=== PATIENT | female | born 1975 | race Caucasian/White ===

== ENCOUNTER → 2018-01-07 07:50 | Outpatient (CLI) | payer BC, SELFPAY ==
[2018-01-07 14:05] LABS: Basophils % 0.4 % (0.1-2.0); Eosinophils # 0.2 K/mm3 (0.0-0.4); Eosinophils % 3.1 % (0.1-12.0); Hematocrit 42.5 % (37.0-47.0); Hemoglobin 14.2 g/dL (12.2-16.2); Lymphocytes # 1.6 K/mm3 (0.7-4.5); Lymphocytes % 28.9 K/mm3 (10-50); Mean Corpuscular HGB Conc 33.5 g/dL (31.8-35.4); Mean Corpuscular Hemoglobin 30.2 pg (27.0-31.2); Mean Platelet Volume 7.6 fl (7.4-10.4); Monocytes # 0.3 K/mm3 (0.1-1.0); Monocytes % 4.7 % (1.7-9.3); Neutrophils # 3.4 K/mm3 (1.8-7.8); Platelet Count 301 K/mm3 (142-424); Red Blood Count 4.72 M/mm3 (4.20-5.40); Red Cell Distribution Width 13.4 % (11.5-17.5); White Blood Count 5.4 K/mm3 (4.8-10.8)
[2018-01-07 14:30] LABS: Alanine Aminotransferase 33 U/L (12-78); Albumin Level 4.1 gm/dL (3.4-5.0); Albumin/Globulin Ratio 1.2 (1.1-1.8); Alkaline Phosphatase 107 U/L (46-116); Aspartate Amino Transferase 20 U/L (15-37); Bilirubin,Total 0.4 mg/dL (0.2-1.0); Blood Urea Nitrogen 14 mg/dL (7-18); Calcium 9.2 mg/dL (8.5-10.1); Carbon Dioxide 25 mmol/L (21.0-32.0); Chloride 103 mmol/L (98-107); Chol/HDL Ratio 3.7 (1-3.5); Cholesterol 159 mg/dL (140-200); Creatinine,Serum 0.79 mg/dL (0.55-1.02); Estimated Glomerular Filt Rate 79 ml/min (>60); GFR (African American) 96 ML/MIN (>60); Globulin 3.5 gm/dl (1.3-3.2); Glucose 102 mg/dL (74-106); HDL Cholesterol 43 mg/dL (29-89); LDL Cholesterol 97 mg/dL (0-130); Sodium 140 mmol/L (136-145); Thyroid Stimulating Hormone 0.69 uIU/ml (0.358-3.740); Total Protein,Serum 7.6 gm/dL (6.4-8.2); Triglycerides 97 mg/dL (30-200); VLDL Cholesterol 19 mg/dL (0-40)
== END ==
PROVIDERS: PCP Nurse Practitioner Family; Visit Provider Nurse Practitioner Family
DX: E78.2 Mixed hyperlipidemia (principal); E55.9 Vitamin D deficiency, unspecified; I10 Essential (primary) hypertension; E03.9 Hypothyroidism, unspecified
CPT/HCPCS: 36415; 80053; 80061; 82652; 84443; 85025

== ENCOUNTER → 2018-03-11 11:46 | Outpatient (CLI) | payer BC, SELFPAY ==
[2018-03-11 13:16] LABS: Basophils % 0.4 % (0.1-2.0); Eosinophils # 0.2 K/mm3 (0.0-0.4); Eosinophils % 3.7 % (0.1-12.0); Hematocrit 39.9 % (37.0-47.0); Hemoglobin 12.9 g/dL (12.2-16.2); Lymphocytes # 1.7 K/mm3 (0.7-4.5); Lymphocytes % 27.2 K/mm3 (10-50); Mean Corpuscular HGB Conc 32.2 g/dL (31.8-35.4); Mean Corpuscular Hemoglobin 28.8 pg (27.0-31.2); Mean Corpuscular Volume 89.4 fl (81-99); Mean Platelet Volume 6.9 fl (7.4-10.4); Monocytes # 0.3 K/mm3 (0.1-1.0); Monocytes % 5.2 % (1.7-9.3); Neutrophils % 63.4 % (37.0-80.0); Platelet Count 264 K/mm3 (142-424); Red Blood Count 4.47 M/mm3 (4.20-5.40); Red Cell Distribution Width 13.5 % (11.5-17.5); White Blood Count 6.3 K/mm3 (4.8-10.8)
[2018-03-11 13:25] LABS: Uric Acid 7.8 mg/dL (2.6-7.2)
== END ==
PROVIDERS: Visit Provider Nurse Practitioner Family
DX: M79.89 Other specified soft tissue disorders (principal); M79.675 Pain in left toe(s)
CPT/HCPCS: 36415; 84550; 85025

== ENCOUNTER → 2019-12-05 08:03 | Outpatient (CLI) | payer BC, SELFPAY ==
[2019-12-05 14:25] LABS: Basophils % 0.6 % (0.1-2.0); Eosinophils # 0.1 K/mm3 (0.0-0.4); Eosinophils % 2.7 % (0.1-12.0); Hematocrit 41.5 % (37.0-47.0); Hemoglobin 14.1 g/dL (12.2-16.2); Lymphocytes # 1.4 K/mm3 (0.7-4.5); Lymphocytes % 29.3 % (10-50); Mean Corpuscular HGB Conc 33.9 g/dL (31.8-35.4); Mean Corpuscular Hemoglobin 29.2 pg (27.0-31.2); Mean Platelet Volume 8.4 fl (7.4-10.4); Monocytes # 0.3 K/mm3 (0.1-1.0); Neutrophils # 3.1 K/mm3 (1.8-7.8); Neutrophils % 62.5 % (37.0-80.0); Platelet Count 264 K/mm3 (142-424); Red Blood Count 4.82 M/mm3 (4.20-5.40); Red Cell Distribution Width 13.7 % (11.5-17.5); White Blood Count 4.9 K/mm3 (4.8-10.8)
[2019-12-05 14:42] LABS: Alanine Aminotransferase 20 U/L (12-78); Albumin Level 4.3 g/dl (3.5-5.0); Albumin/Globulin Ratio 1.6 (1.1-1.8); Alkaline Phosphatase 108 U/L (38-126); Anion Gap 13.3 mEq/L (5-15); Aspartate Amino Transferase 24 U/L (14-36); Bilirubin,Total 0.5 mg/dl (0.2-1.3); Blood Urea Nitrogen 13 mg/dl (7-17); Calcium 9.8 mg/dl (8.4-10.2); Carbon Dioxide 25 mmol/L (22.0-30.0); Chloride 106 mmol/L (98-107); Cholesterol 165 mg/dl (140-200); Estimated Glomerular Filt Rate 78 ml/min (>60); GFR (African American) 94 ML/MIN (>60); Globulin 2.7 g/dL (1.3-3.2); Glucose 101 mg/dl (74-100); HDL Cholesterol 41 mg/dl (40-60); Potassium 4.3 mmoL/L (3.5-5.1); Sodium 140 mmol/L (136-145); Triglycerides 112 mg/dl (30-150); VLDL Cholesterol 22 mg/dL (0-40)
[2019-12-05 14:53] LABS: Direct LDL Cholesterol 104.51 mg/dL (100-129)
[2019-12-05 15:13] LABS: Thyroid Stimulating Hormone 0.53 uIU/mL (0.465-4.68)
== END ==
PROVIDERS: Visit Provider Nurse Practitioner Family
DX: E03.9 Hypothyroidism, unspecified (principal); E78.2 Mixed hyperlipidemia; I10 Essential (primary) hypertension
CPT/HCPCS: 36415; 80053; 80061; 84443; 85025

== ENCOUNTER 2020-04-28 16:01 | Emergency (ER) | payer BC, SELFPAY ==
[2020-04-28 16:27] VITALS: BP 134/74; PULSE 60; RESP 19; TEMP 36.7; O2SAT 99; BMI 33.5
--- NOTE | 2020-04-28 16:48 | HMH.EDUTC ---
[facility] [place] Disposition Clinical Impression: Sinusitis Qualifiers: Sinusitis location: unspecified location Chronicity: acute Recurrence: non-recurrent Qualified Code(s): J01.90 - Acute sinusitis, unspecified Disposition: Home, Self-Care Condition on Discharge: Good Instructions: Sinusitis, DI for Sinusitis Additional Instructions: Drink plenty of fluids. Take tylenol for pain or fever. Take the medications as directed. Follow up with your regular doctor. GO TO THE ER FOR ANY WORSENING SYMPTOMS FOLLOW THE DIRECTIONS ON THE COVID-19 HAND OUT THAT WE GAVE YOU REGARDING SELF-ISOLATION UNTIL YOU KNOW YOUR COVID-19 RESULTS Prescriptions: Benzonatate [Tessalon Perle 100mg Cap] 100 mg PO TIDP PRN #30 cap PRN Reason: Cough Transmission Status: Received by [facility] # [id number] Azithromycin [Z-Alexei 250mg Tab*] 250 mg PO UD DOSE PK #6 tab Transmission Status: Received by [facility] # [id number] Referrals: Mauro Bernabe MD [Primary Care Provider] - Forms: Work/School Release Time of Disposition: 16:50 Medical Decision Making - Medical Records Medical records reviewed: No: I reviewed the patient's medical records. - Joey Inquiry Pt receiving controlled substance: No Vital Signs: 04/28/20 16:27 04/28/20 17:10 Temperature 98.1 F 98.1 F Temperature Source Oral Oral Pulse Rate 60 Pulse Rate [Radial] 60 Respiratory Rate 19 19 Blood Pressure 134/74 Blood Pressure [Right Arm] 134/74 Blood Pressure Mean [Right Arm] 94 Blood Pressure Source Automatic Cuff Blood Pressure Source [Right Arm] Automatic Cuff Blood Pressure Position Sitting Blood Pressure Position [Right Arm] Sitting 02 Sat by Pulse Oximetry 99 Oxygen Delivery Method Nasal Cannula Room Air - Lab Data Lab results reviewed: Yes: I reviewed the patient's lab results. Lab Results 04/28/20 16:33: Strep Scn Rapid Clinic Negative Orders (Tests/Meds): ORDERS Category Date Time Status Strep Screen Confirmation Stat Micro 04/28/20 16:33 Received [facility] [place] HPI - General Stated complaint: Headache, sore throat Time Seen by Provider: 04/28/20 16:48 Mode of Arrival: Ambulatory Source of Information: Patient Limitations: No Limitations Description of Symptoms (Recalled from Triage Doc. by RN): sore throat, possible sinus infection HEENT Symptoms (Recalled from RN notes): Yes Resp Symptoms (Recalled from RN notes): No Skin Symptoms (Recalled from RN notes): No MS Symptoms (Recalled from RN notes): No Functional Status (Recalled from RN notes): wnl - History of Present Illness Provider Complaint: She c/o sinus congestion and feeling bad for the past 3 days. She works at the [employer]. She denies any known COVID exposure, but she states that she has been around a lot of sick people. - Related Data Home Medications Medication Instructions Recorded Confirmed cetirizine 10 mg tablet 10 mg PO DAILY 09/07/18 09/07/18 gemfibrozil 600 mg tablet 600 mg PO BID 09/07/18 09/07/18 levothyroxine 75 mcg capsule 75 mcg PO DAILY 09/07/18 09/07/18 lisinopril 10 mg tablet 10 mg PO DAILY 09/07/18 09/07/18 Previous Rx's Medication Instructions Recorded azithromycin 250 mg tablet 250 mg PO QDAY 5 Days #6 tab 09/07/18 Azithromycin [Z-Alexei 250mg Tab*] 250 mg PO UD DOSE PK #6 tab 04/28/20 Benzonatate [Tessalon Perle 100mg 100 mg PO TIDP PRN #30 cap 04/28/20 Cap] Allergies Allergy/AdvReac Type Severity Reaction Status Date / Time Penicillins Allergy Verified 09/07/18 11:07 - Worker's Comp Is this a Worker's Comp case?: No [facility] History - Hepatitis A Screen Drug use history?: No High risk sexual behaviors?: No History of sexually transmitted infection?: No Currently employed?: No Childcare worker?: No Do you have indoor plumbing?: Yes Do you have electricity?: Yes Attestation statement:: This patient has been screened for Hepatitis A risk factors. I have reviewed the patient's past medical history: Yes [facility]
[2020-04-28 17:10] VITALS: BP 134/74; PULSE 60; RESP 19; TEMP 36.7; O2SAT 99
--- NOTE | 2020-04-28 19:58 | PC.NURSE ---
COVID TEST POSTIVE RESULT GIVEN PER TOMI SANTIAGO RN.
--- NOTE | 2020-04-28 20:07 | PC.NURSE ---
PROVIDER AWARE OF TEST RESULTS.
[2020-04-28 20:16] LABS: UTC Strep Screen (Rapid) Negative (Negative)
== END 2020-04-28 17:11 | disposition home or self-care (01) ==
PROVIDERS: Emergency Provider Nurse Practitioner Family; PCP Internal Medicine Adolescent Medicine
DX: J01.90 Acute sinusitis, unspecified (principal); Z20.828 Contact with and (suspected) exposure to other viral communicable diseases; E78.5 Hyperlipidemia, unspecified; I10 Essential (primary) hypertension; Z88.0 Allergy status to penicillin; Z79.899 Other long term (current) drug therapy
CPT/HCPCS: 87880; 99202; U0003

== ENCOUNTER → 2021-02-26 16:03 | Outpatient (CLI) | payer BC, SELFPAY ==
[2021-02-26 16:41] LABS: Basophils % 0.5 % (0.1-2.0); Eosinophils # 0.1 K/mm3 (0.0-0.4); Eosinophils % 1.8 % (0.1-12.0); Hematocrit 40.2 % (37.0-47.0); Hemoglobin 13.8 g/dL (12.2-16.2); Lymphocytes # 1.7 K/mm3 (0.7-4.5); Lymphocytes % 29.1 % (10-50); Mean Corpuscular HGB Conc 34.2 g/dL (31.8-35.4); Mean Corpuscular Hemoglobin 29.6 pg (27.0-31.2); Mean Corpuscular Volume 86.4 fl (81-99); Mean Platelet Volume 8.1 fl (7.4-10.4); Monocytes # 0.3 K/mm3 (0.1-1.0); Monocytes % 5.2 % (1.7-9.3); Neutrophils # 3.7 K/mm3 (1.8-7.8); Neutrophils % 63.3 % (37.0-80.0); Platelet Count 265 K/mm3 (142-424); Red Blood Count 4.65 M/mm3 (4.20-5.40); Red Cell Distribution Width 13.6 % (11.5-17.5); White Blood Count 5.8 K/mm3 (4.8-10.8)
[2021-02-26 17:00] LABS: Alanine Aminotransferase 30 U/L (12-78); Albumin Level 4.2 g/dl (3.5-5.0); Albumin/Globulin Ratio 1.6 (1.1-1.8); Alkaline Phosphatase 92 U/L (38-126); Anion Gap 10.5 mEq/L (5-15); Aspartate Amino Transferase 32 U/L (14-36); Bilirubin,Total 0.5 mg/dl (0.2-1.3); Blood Urea Nitrogen 15 mg/dl (7-17); Calcium 8.9 mg/dl (8.4-10.2); Carbon Dioxide 28 mmol/L (22.0-30.0); Chloride 107 mmol/L (98-107); Chol/HDL Ratio 4.3 (1-3.5); Cholesterol 184 mg/dl (140-200); Estimated Glomerular Filt Rate 90 ml/min (>60); GFR (African American) 109 ML/MIN (>60); Globulin 2.6 g/dL (1.3-3.2); Glucose 90 mg/dl (74-100); HDL Cholesterol 43 mg/dl (40-60); Potassium 4.5 mmoL/L (3.5-5.1); Sodium 141 mmol/L (136-145); Total Protein,Serum 6.8 g/dl (6.3-8.2); Triglycerides 116 mg/dl (30-150); Uric Acid 7.1 mg/dl (2.5-6.2); VLDL Cholesterol 23 mg/dL (0-40)
[2021-02-26 17:12] LABS: Direct LDL Cholesterol 118.48 mg/dL (100-129)
[2021-02-26 20:41] LABS: Hemoglobin A1C 5.5 % (4.0-6.0)
== END ==
PROVIDERS: Visit Provider Nurse Practitioner Family
DX: I10 Essential (primary) hypertension (principal); E78.2 Mixed hyperlipidemia; E03.9 Hypothyroidism, unspecified; E55.9 Vitamin D deficiency, unspecified; M1A.9XX0 Chronic gout, unspecified, without tophus (tophi); Z83.3 Family history of diabetes mellitus
CPT/HCPCS: 80053; 80061; 82306; 83036; 84443; 84550; 85025

== ENCOUNTER 2021-10-22 12:31 | Emergency (ER) | payer BC, SELFPAY ==
[2021-10-22 12:55] VITALS: BP 148/89; PULSE 75; RESP 16; TEMP 36.6; O2SAT 97; BMI 37.8
--- NOTE | 2021-10-22 13:21 | HMH.EDUTC ---
[facility] [place] Disposition Clinical Impression: Sinusitis Qualifiers: Sinusitis location: unspecified location Chronicity: acute Recurrence: non-recurrent Qualified Code(s): J01.90 - Acute sinusitis, unspecified Otitis media Qualifiers: Otitis media type: suppurative Chronicity: acute Laterality: bilateral Recurrence: non-recurrent Spontaneous tympanic membrane rupture: without spontaneous rupture Qualified Code(s): H66.003 - Acute suppurative otitis media without spontaneous rupture of ear drum, bilateral Disposition: Home, Self-Care Condition on Discharge: Good Instructions: Middle Ear Infection, DI for Sinusitis, Benign Paroxysmal Positional Vertigo, Meclizine Additional Instructions: Drink plenty of fluids. Take tylenol or ibuprofen for pain or fever. Take the medications as directed. Follow up with your regular doctor. GO TO THE ER FOR ANY WORSENING SYMPTOMS Don't start the oral steroids until tomorrow, since you had the shot here today. Prescriptions: Meclizine HCl [Antivert 25mg tablet] 25 mg PO Q6HP PRN #20 tab PRN Reason: Dizziness Transmission Status: Received by [id number] methylPREDNISolone [Medrol] 4 mg PO DIRECTED 6 Days #21 packet Transmission Status: Received by [id number] Azithromycin [Z-Alexei 250mg Tab*] 250 mg PO UD DOSE PK #6 tab Transmission Status: Received by [id number] Referrals: Mauro Bernabe MD [Primary Care Provider] - Forms: Work/School Release Time of Disposition: 14:05 Medical Decision Making - Medical Records Medical records reviewed: No: I reviewed the patient's medical records. - Joey Inquiry Pt receiving controlled substance: No Vital Signs: 10/22/21 12:55 10/22/21 14:20 Temperature 98 F 98 F Temperature Source Oral Pulse Rate 75 Pulse Rate [Left] 75 Respiratory Rate 16 16 Blood Pressure 148/89 H Blood Pressure [Right Arm] 148/89 H Blood Pressure Mean [Right Arm] 108 02 Sat by Pulse Oximetry 97 - Lab Data Lab results reviewed: Yes: I reviewed the patient's lab results. Lab Results 10/22/21 13:34: Influenza Type A Ag Negative, Influenza Type B Ag Negative Orders (Tests/Meds): ED MEDICATIONS Discontinued Medications Generic Name Dose Route Start Last Admin Trade Name Freq PRN Reason Stop Dose Admin Methylprednisolone Sodium Succinate 125 mg 10/22/21 14:03 10/22/21 14:19 Methylprednisolone Sod Succ 125mg Vial IM 10/22/21 14:04 125 mg ONCE ONE Administration [facility] [place] HPI - General Stated complaint: possible sinus infection Time Seen by Provider: 10/22/21 13:21 Mode of Arrival: Ambulatory Source of Information: Patient Limitations: No Limitations Description of Symptoms (Recalled from Triage Doc. by RN): pt c/o sinus pain/pressure/congestion and bilateral ear aches. HEENT Symptoms (Recalled from RN notes): Yes Resp Symptoms (Recalled from RN notes): No Skin Symptoms (Recalled from RN notes): No MS Symptoms (Recalled from RN notes): No Functional Status (Recalled from RN notes): wnl - History of Present Illness Provider Complaint: She states that she has felt bad for the past 3 days. She works at [employer], so she has been exposed to covid-19. She took a covid test that was negative on the first day she felt bad, then she took another one yesteday that was also negative. She c/o bilateral ear pain, sinus congestion, sore throat, chest congestion and a nonproductive cough. She has had periods of dizziness after raising up quickly or turning her head quickly. She has been fully vaccinated against covid-19 and she has had a flu shot. - Related Data Home Medications Medication Instructions Recorded Confirmed cetirizine 10 mg tablet 10 mg PO DAILY 09/07/18 09/07/18 gemfibrozil 600 mg tablet 600 mg PO BID 09/07/18 09/07/18 levothyroxine 75 mcg capsule 75 mcg PO DAILY 09/07/18 09/07/18 lisinopril 10 mg tablet 10 mg PO DAILY 09/07/18 09/07/18 Previous Rx's Medicatio
[2021-10-22 13:45] LABS: UTC Influenza A Antigen Negative (Negative); UTC Influenza B Antigen Negative (Negative)
[2021-10-22 14:20] VITALS: BP 148/89; PULSE 75; RESP 16; TEMP 36.6
== END 2021-10-22 14:33 | disposition home or self-care (01) ==
PROVIDERS: Emergency Provider Nurse Practitioner Family; PCP Internal Medicine Adolescent Medicine
DX: J01.90 Acute sinusitis, unspecified (principal); H33.003 Unspecified retinal detachment with retinal break, bilateral
CPT/HCPCS: 87804; 96372; 99202; G0463

== ENCOUNTER 2022-08-25 08:41 | Emergency (ER) | payer BC, SELFPAY ==
[2022-08-25 09:30] VITALS: BP 141/78; PULSE 75; RESP 18; TEMP 36.6; O2SAT 98; BMI 36.8
--- NOTE | 2022-08-25 09:55 | EXP.UTC ---
Discharge Plan Disposition Patient Disposition: Home, Self-Care Condition: Good Prescriptions Prescriptions: New methylprednisolone [Medrol (Alexei)] 4 mg tablets,dose pack See Rx Instructions .Route .COMPLEX 6 Days Qty: 21 0RF Rx Instructions: taper pack; azithromycin [Zithromax Z-Alexei] 250 mg tablet See Rx Instructions .ROUTE .COMPLEX 5 Days Qty: 6 0RF Rx Instructions: For 250 mg dose pack: take 500 mg today (day 1), then 250 mg for 4 days (days 2-5) No Action lisinopril 10 mg tablet 10 mg PO DAILY cetirizine [Zyrtec] 10 mg tablet 10 mg PO DAILY levothyroxine 75 mcg capsule 75 mcg PO DAILY gemfibrozil 600 mg tablet 600 mg PO BID azithromycin 250 mg tablet 250 mg PO QDAY 5 Days Qty: 6 0RF Rx Instructions: ii tabs day one, i tab days 2-5 azithromycin 250 MG tablet 250 mg PO UD DOSE PK Qty: 6 0RF Rx Instructions: Take two (2) tablets today, then one (1) tablet days #2 thru #5 benzonatate 100 MG capsule 100 mg PO TIDP PRN (Reason: Cough) Qty: 30 0RF azithromycin 250 MG tablet 250 mg PO UD DOSE PK Qty: 6 0RF Rx Instructions: Take two (2) tablets today, then one (1) tablet days #2 thru #5 meclizine 25 MG tablet 25 mg PO Q6HP PRN (Reason: Dizziness) Qty: 20 0RF methylprednisolone 4 MG tablets,dose pack 4 mg PO DIRECTED 6 Days Qty: 21 0RF Referrals Follow up/Referrals: Mauro Bernabe MD [Primary Care Provider] - See instructions Clinical Impressions Clinical Impression: Sinusitis Instructions Patient Instructions: DI for Sinusitis, Sinusitis Discharge ED Provider: Kayleen Chu [facility] [place] HPI General Stated complaint: ear pain, sore throat, drainage, [place] Mode of Arrival: Ambulatory Source of Information: Patient Limitations: No Limitations Time Seen by Provider: 08/25/22 09:55 Description of Symptoms (Recalled from Triage Doc. by RN): PATIENT C/O EAR PAIN, SINUS DRAINAGE AND BODY ACHES X 1 WEEK HEENT Symptoms (Recalled from RN notes): Yes Resp Symptoms (Recalled from RN notes): No Skin Symptoms (Recalled from RN notes): No MS Symptoms (Recalled from RN notes): No Functional Status (Recalled from RN notes): WNL History of Present Illness Provider Complaint: Patient states that she has been having sinus pain and pressure, pain in both ears and body aches for over a week States that feels like it does when she has sinus infection so she came in to get something before it got worse Related Data Home Medications Medication Instructions Recorded Confirmed cetirizine 10 mg tablet (Zyrtec) 10 mg PO DAILY 09/07/18 09/07/18 gemfibrozil 600 mg tablet 600 mg PO BID 09/07/18 09/07/18 levothyroxine 75 mcg capsule 75 mcg PO DAILY 09/07/18 09/07/18 lisinopril 10 mg tablet 10 mg PO DAILY 09/07/18 09/07/18 Previous Rx's Medication Instructions Recorded azithromycin 250 mg tablet 250 mg PO QDAY sinus 5 days #6 tabs 09/07/18 azithromycin 250 mg tablet 250 mg PO UD DOSE PK #6 tabs 04/28/20 benzonatate 100 mg capsule 100 mg PO TIDP PRN Cough #30 caps 04/28/20 azithromycin 250 mg tablet 250 mg PO UD DOSE PK #6 tabs 10/22/21 meclizine 25 mg tablet 25 mg PO Q6HP PRN Dizziness #20 10/22/21 tabs methylprednisolone 4 mg tablets in 4 mg PO DIRECTED 6 days #21 10/22/21 a dose pack packets azithromycin 250 mg tablet See Rx Instructions PO .COMPLEX 5 08/25/22 (Zithromax Z-Alexei) days #6 tabs methylprednisolone 4 mg tablets in See Rx Instructions .Route 08/25/22 a dose pack (Medrol (Alexei)) .COMPLEX 6 days #21 tabs Allergies Allergy/AdvReac Type Severity Reaction Status Date / Time Penicillins Allergy Verified 09/07/18 11:07 Worker's Comp Is this a Worker's Comp case?: No [facility] Disclaimer: The information contained in this section may have been updated after the patient was seen, as this information can be updated by other users. Medical History (Updated 08/25/22 @ 10:00 by Kayleen Chu APRN) Hypert
[2022-08-25 10:03] VITALS: BP 141/78; PULSE 75; RESP 18; TEMP 36.6; O2SAT 98
== END 2022-08-25 10:06 | disposition home or self-care (01) ==
PROVIDERS: Emergency Provider Nurse Practitioner; PCP Internal Medicine Adolescent Medicine
DX: J32.9 Chronic sinusitis, unspecified (principal)
CPT/HCPCS: 99212